=== PATIENT | male | born 1980 | race Caucasian/White ===

== ENCOUNTER 2018-12-10 17:03 | Emergency (ER) | payer BC ==
--- NOTE | 2018-12-10 17:23 | ED.PDOC ---
History of Present Illness - General Chief Complaint: Problem Stated Complaint: Difficulty urinating, pain low left side Time Seen by Provider: 12/10/18 17:19 Source: patient, family Additional Information: 38 YEAR OLD WOKE UP AT 3 AM WITH LEFT FLANK PAIN SOME RADIATION TO THE GROIN NO FEVER NO HEMATURIA NO NAUSEA VOMITNG HE HAS NO SIGNIFICANT PAST MEDICAL HISTORY FATHER HAS HAD KIDNEY STONES - History of Present Illness Timing/Duration: intermittent Severity: moderate Improving Factors: nothing Worsening Factors: nothing Associated Symptoms: denies symptoms Allergies/Adverse Reactions: Allergies NO KNOWN ALLERGY Allergy (Verified 12/10/18 17:40) Home Medications: Ambulatory Orders Acetamin W/Cod #3 Tab [Tylenol w/CODEINE #3] 1 ea PO Q6HR PRN #40 tab 12/10/18 Acetamin W/Cod #3 Tab [Tylenol w/CODEINE #3] 1 ea PO Q6HR PRN #40 tab 12/10/18 Review of Systems - Review of Systems Constitutional: States: no symptoms reported EENTM: States: no symptoms reported Respiratory: States: no symptoms reported Cardiology: States: no symptoms reported Gastrointestinal/Abdominal: States: no symptoms reported Genitourinary: States: see HPI Musculoskeletal: States: no symptoms reported Skin: States: no symptoms reported Neurological: States: no symptoms reported Endocrine: States: no symptoms reported Family Medical History - Family History Father Hx Family Cancer: Yes - Colon cancer Mother Hx Family Cancer: Yes - skin cancer (melanoma on the forehead) Physical Exam - Physical Exam General Appearance: Alert, Comfortable Eye Exam: bilateral normal Ears, Nose, Throat: hearing grossly normal, normal ENT inspection, normal pharynx Neck: non-tender, full range of motion, supple Respiratory: chest non-tender, lungs clear, normal breath sounds, no respiratory distress Cardiovascular/Chest: normal peripheral pulses, regular rate, rhythm, no gallop, no JVD Gastrointestinal/Abdominal: normal bowel sounds, non tender, soft, no organomegaly, no pulsatile mass Back Exam: no CVA tenderness, no vertebral tenderness Extremity: normal range of motion, non-tender, normal inspection Skin Exam: normal color, warm/dry Lymphatic: no adenopathy Progress - Results/Orders Results/Orders: Laboratory Tests 12/10/18 12/10/18 12/10/18 17:36 17:36 17:36 WBC 8.9 RBC 6.06 Hgb 15.7 Hct 47.8 MCV 78.9 L MCH 25.9 L MCHC 32.8 L RDW 15.0 H Plt Count 242 MPV 7.6 Absolute Neuts (auto) 7.10 H Absolute Lymphs (auto) 1.30 Absolute Monos (auto) 0.50 Absolute Eos (auto) 0.00 Absolute Basos (auto) 0.00 Neutrophils % 79.0 H Lymphocytes % 14.5 L Monocytes % 5.6 Eosinophils % 0.4 L Basophils % 0.5 Sodium 136 Potassium 3.7 Chloride 99 L Carbon Dioxide 25 Anion Gap 15.7 BUN 16 Creatinine 1.34 H BUN/Creatinine Ratio 11.9 Random Glucose 114 H Serum Osmolality 274.0 L Calcium 9.0 Total Bilirubin 0.5 AST 26 ALT 44 Alkaline Phosphatase 58 Serum Total Protein 7.7 Albumin 4.1 Globulin 3.6 H Albumin/Globulin Ratio 1.1 Urine Color Yellow Urine Appearance Sl cloudy Urine pH 5.5 Ur Specific [place] 1.025 Urine Protein 30 Urine Glucose (UA) Negative Urine Ketones 15 H Urine Blood Moderate H Urine Nitrite Negative Urine Bilirubin Negative Urine Urobilinogen 0.2 Ur Leukocyte Esterase Negative Urine RBC 3-5 H Urine WBC 0 Ur Epithelial Cells 0-[address] B[address] REPORT LEFT RENAL NEPHROLITHIASIS THERE IS NO HYDRO POSSIBILITY OF PASSING A STONE Departure - Departure Clinical Impression: Renal colic on left side Time of Disposition: 18:23 Disposition: Discharge to Home or Self Care Condition: Good Departure Forms: ED Discharge - Pt. Copy, Patient Portal Self Enrollment Prescriptions: Acetamin W/Cod #3 Tab [Tylenol w/CODEINE #3] 1 ea PO Q6HR PRN #40 tab PRN Reason: Mild To Moderate Pain Acetamin W/Cod #3 Tab [Tylenol w/CODEINE #3] 1 ea PO Q6HR PRN #40 tab PRN Reason: Mild To Moderate Pain Home Medications: Ambulatory Orders Acetamin W/Cod #3 Tab [Tylenol w/CODEINE #3] 1 ea PO Q6HR PRN #40 tab 12/10/18 Acetamin W/Cod #3 Tab [Tylenol w/CODEINE #3] 1 ea PO Q6HR PRN #40 tab 12/10/18
[2018-12-10] MEDS: KETOROLAC TROMETHAMINE INJ 30 MG/ML VIAL IV ONE (17:34)
--- NOTE | 2018-12-10 18:12 | CT ---
EXAM DESCRIPTION: Abdoment/Pelvis w/o Contrast CLINICAL HISTORY:38 years Male, LEFT RENAL COLIC Comparison: None TECHNIQUE: Contiguous axial images of the abdomen and pelvis were obtained followed by reconstruction images. This exam was performed according to our departmental dose-optimization program, which includes automated exposure control, adjustment of the mA and/or kV according to patient size and/or use of iterative reconstruction technique. FINDINGS: Lung bases: Lung bases are clear. Heart: Visualized heart is within normal limits in size. Liver:Diffuse low-attenuation throughout the liver consistent with hepatocellular disease/fatty infiltration. No focal liver lesion seen. Gallbladder:Unremarkable. No gallstones. No gallbladder wall thickening or pericholecystic fluid. Spleen:Unremarkable Pancreas: Pancreas is unremarkable. Adrenal glands:Within normal limits. Kidneys/ureters: Mild, asymmetric fullness of left ureter. No ureteral calculus seen. Punctate calculus in the left renal upper pole. Bladder:Unremarkable. Pelvic organs: No acute abnormality Vascular structures: within normal limits Peritoneum: No free fluid. Lymph nodes: No abnormal lymph nodes. Stomach/small bowel/colon: Stomach is unremarkable. Small bowel is unremarkable. Colon is unremarkable. Appendix: No evidence of appendicitis. Bones: No acute osseous abnormality. Soft tissues: Small fat containing right inguinal hernia.. IMPRESSION: * Mild asymmetric fullness of the left ureter without ureteral calculus seen. Correlate for recently passed calculus. Left parenchymal nephrolithiasis. * Hepatic steatosis. Electronically signed by: Ayan Gates MD 12/10/2018 6:10 PM [employer]
[2018-12-10 18:37] VITALS: BP 149/82; TEMP 98.1; O2SAT 99
== END 2018-12-10 18:37 | disposition home or self-care (01) ==
LOC: ER 17:03
DX: N20.0 Calculus of kidney (principal)
CPT/HCPCS: 36415; 74176; 80053; 81001; 85025; J1885

== ENCOUNTER 2019-09-09 20:07 | Emergency (ER) | payer BC ==
--- NOTE | 2019-09-09 20:55 | RAD ---
EXAM DESCRIPTION: Foot, left 3 Views; 3 views CLINICAL HISTORY: 38 years Male, injured 2 weeks ago COMPARISON: None. FINDINGS: Negative for acute fracture, dislocation, or radiopaque foreign body. Small plantar calcaneal enthesophyte. IMPRESSION: No acute findings. Electronically signed by: Paxton Luna MD 09/09/2019 8:54 PM [facility]
--- NOTE | 2019-09-09 20:58 | ED.PDOC ---
History of Present Illness - General Chief Complaint: Lower Extremity Injury Stated Complaint: left foot injury Time Seen by Provider: 09/09/19 20:28 Source: patient Exam Limitations: no limitations - History of Present Illness Initial Comments: the patient is a 38-year-old male who twisted his left ankle about 2 weeks ago and is still having pain there. The pain is actually below the ankle and the lateral midfoot. No gross deformity. There is mild swelling. He is neurovascularly intact. No laceration.no significant pain in the ankle itself. No pain proximally. Timing/Duration: other - 2 weeks Severity: moderate Improving Factors: immobilization Worsening Factors: movement Associated Symptoms: denies symptoms Allergies/Adverse Reactions: Allergies NO KNOWN ALLERGY Allergy (Verified 12/10/18 17:40) Review of Systems - Review of Systems Constitutional: States: no symptoms reported EENTM: States: no symptoms reported Respiratory: States: no symptoms reported Cardiology: States: no symptoms reported Gastrointestinal/Abdominal: States: no symptoms reported Genitourinary: States: no symptoms reported Musculoskeletal: States: see HPI Skin: States: no symptoms reported Neurological: States: no symptoms reported Endocrine: States: no symptoms reported Hematologic/Lymphatic: States: no symptoms reported All other Systems: No Change from Baseline Past Medical History (General) - Patient Medical History Hx Seizures: No Hx Stroke: No Hx Asthma: No Hx of COPD: No Hx Cardiac Disorders: No Hx Congestive Heart Failure: No Hx Diabetes: No Hx Gastroesophageal Reflux: Yes Surgical History: other - Vaccination History Hx Tetanus, Diphtheria Vaccination: No Hx Influenza Vaccination: No Hx Pneumococcal Vaccination: No - Social History Hx Tobacco Use: No Hx Alcohol Use: Yes Hx Substance Use: No Family Medical History - Family History Father Hx Family Cancer: Yes - Colon cancer Mother Family History: Unknown Living Status: Unknown Hx Family Cancer: Yes - skin cancer (melanoma on the forehead) Physical Exam - Physical Exam General Appearance: Alert, Comfortable, No apparent distress Eye Exam: bilateral normal Ears, Nose, Throat: hearing grossly normal Respiratory: no respiratory distress, no accessory muscle use Cardiovascular/Chest: normal peripheral pulses, no edema Peripheral Pulses: dorsalis pedis,right: 2+, dorsalis pedis,left: 2+ Rectal Exam: deferred Extremity: normal range of motion, no calf tenderness, normal capillary refill, swelling, other - see history of present illness Neurologic: machine edge bander II-XII nml as tested, no motor/sensory deficits, alert, normal mood/affect, oriented x 3 Skin Exam: normal color Comments: Vital Signs - 24 hr 09/09/19 20:16 Temperature 98 F Pulse Rate [ 106 H Pulse Ox] Respiratory 20 Rate Blood Pressure 157/102 [L Arm] O2 Sat by Pulse 98 Oximetry Progress - Progress Progress: 09/09/19 20:59 the patient is a 38-year-old male presents to emergency room secondary to having injured his left foot couple of weeks ago. X-ray here shows no evidence of any fracture or dislocation. This appears to be a moderate midfoot sprain on the left. Motrin can be used for discomfort. Due to the persistent pain the patient is going to be placed in a walking boot. He needs to use this for the next couple of weeks. He needs to follow back up with his primary care doctor before he is cleared from it. ER warnings were given for any significant worsening. seth [id number] Departure - Departure Clinical Impression: Sprain of left foot Qualifiers: Encounter type: initial encounter Qualified Code(s): S93.602A - Unspecified sprain of left foot, initial encounter Disposition: Discharge to Home or Self Care Condition: Fair Departure Forms: ED Discharge - Pt. Copy, Patient Portal Self Enrollment Instructions: Foot Sprain (DC) Diet: regular diet Activity: no exercise Additional Instructions: the patient is a 38-year-old male presents to emergency room secondary to having injured his left foot couple of weeks ago. X-ray here shows no evidence of any fracture or dislocation. This appears to be a moderate midfoot sprain on the left. Motrin can be used for discomfort. Due to the persistent pain the patient is going to be placed in a walking boot. He needs to use this for the next couple of weeks. He needs to follow back up with his primary care doctor before he is cleared from it. ER warnings were given for any significant worsening.
[2019-09-09 21:16] VITALS: BP 147/104; TEMP 97.9; O2SAT 97
== END 2019-09-09 21:12 | disposition home or self-care (01) ==
LOC: ER 20:07
DX: S93.602A Unspecified sprain of left foot, initial encounter (principal); K21.9 Gastro-esophageal reflux disease without esophagitis; X50.9XXA Other and unspecified overexertion or strenuous movements or postures, initial encounter; Y92.9 Unspecified place or not applicable

== ENCOUNTER → 2020-05-04 | Outpatient (CLI) | payer BC | LOC: YCFC.O 10:35 | PROVIDERS: ATTEND Family Medicine | DX: M10.071 Idiopathic gout, right ankle and foot (principal) ==